=== PATIENT | female | born 1970 | race Caucasian/White ===

== ENCOUNTER 2016-07-31 01:39 | Emergency (ER) | payer BC ==
--- NOTE | 2016-07-31 01:52 | Emergency Department Record ---
History of Present Illness - General Chief Complaint: Abdominal Pain Stated Complaint: ABDOMINAL PAIN Time Seen by Provider: 07/31/16 01:52 Source: Patient Mode of Arrival: Ambulatory Limitations: No limitations - History of Present Illness Initial Comments: The patient is here due to a 3 day hx of sharp RUQ AP. She does have intermittent nausea but no vomiting or diarrhea. The patient has had her GB removed in the past and also has had gastric bypass. Additionally she states she has a hx of ulcers. She denies any black or bloody stools. MD Complaint: Abdominal pain Onset/Timin -: Days(s) Location: R Flank, RUQ Quality: Burning, Sharp, Stabbing Improves With: Nothing Worsens With: Nothing Associated Symptoms: Nausea, Vomiting Treatments Prior to Arrival: Other - Related Data LMP (females 10-50): 3 weeks ago Home Medications Medication Instructions Recorded Confirmed Last Taken Buspirone HCl [Buspirone HCl] 30 mg PO BID 02/15/14 07/31/16 07/30/16 Clonazepam [Clonazepam] 1 mg PO DAILY 02/15/14 07/31/16 07/30/16 Aripiprazole [Abilify] 20 mg PO DAILY 07/31/16 07/31/16 07/30/16 Lisdexamfetamine Dimesylate 40 mg PO DAILY 07/31/16 07/31/16 07/30/16 [Vyvanse] Lisdexamfetamine Dimesylate 70 mg PO DAILY 07/31/16 07/31/16 07/30/16 [Vyvanse] Omeprazole [Prilosec] 20 mg PO DAILY 07/31/16 07/31/16 07/30/16 Venlafaxine HCl [Effexor Xr] 150 mg PO DAILY 07/31/16 07/31/16 07/30/16 Previous Rx's Medication Instructions Recorded Ondansetron [Zofran Odt] 4 mg SL .Q4-6H PRN #12 tab.rapdis 07/31/16 Sucralfate [Carafate] 1 gm PO QID #28 tablet 07/31/16 Allergies Allergy/AdvReac Type Severity Reaction Status Date / Time codeine Allergy HIVES Verified 02/15/14 02:41 Penicillins Allergy HIVES Verified 02/15/14 02:41 Travel Screening - Travel/Exposure Within Last 30 Days Have you traveled within the last 30 days?: No - Travel/Exposure Within Last Year Have you traveled outside the [place] in the last year?: No - Additonal Travel Details Have you been exposed to anyone with a communicable illness?: No - Travel Symptoms Symptom Screening: None Review of Systems Constitutional: Denies: Chills, Fever Eyes: Denies: Eye discharge ENT: Denies: Congestion Respiratory: Denies: Cough, Dyspnea Past Medical History - SOCIAL HISTORY Smoking Status: Current every day smoker Alcohol Use: None Drug Use: None - RESPIRATORY Hx Respiratory Disorders: No - CARDIOVASCULAR Hx Cardio Disorders: No - NEURO Hx Neuro Disorders: No - GI Hx GI Disorders: Yes Hx Ulcer: Yes - Hx Genitourinary Disorders: Yes Hx Kidney Stones: Yes (hx) - ENDOCRINE Hx Endocrine Disorders: No - MUSCULOSKELETAL Hx Musculoskeletal Disorders: Yes Hx Back Injury: Yes (2008 Fall) - PSYCH Hx Psych Problems: Yes Hx Anxiety: Yes Comment:: ADD - HEMATOLOGY/ONCOLOGY Hx Hematology/Oncology Disorders: No Family Medical History Any Significant Family History?: No Hx Cancer: Grandparents Physical Exam - General General Appearance: Alert, Oriented x3, Cooperative, No acute distress - Head Head exam: Atraumatic, Normocephalic, Normal inspection - Eye Eye exam: Normal appearance, PERRL - Neck Neck exam: Normal inspection, Full ROM. negative: Tenderness - Respiratory Respiratory exam: Normal lung sounds bilaterally. negative: Respiratory distress - Cardiovascular Cardiovascular Exam: Regular rate, Normal rhythm, Normal heart sounds - GI/Abdominal GI/Abdominal exam: Soft, Tenderness (There is mild to moderate RUQ and epigastric tenderness but the abdomen is soft.). negative: Guarding, Rebound, Rigid - Extremities Extremities exam: Normal inspection, Full ROM, Normal capillary refill. negative: Tenderness Course Vital Signs 07/31/16 01:41 Temperature 98.6 F Pulse Rate 81 Respiratory 20 Rate Blood Pressure 132/89 Pulse Ox 100 - Reevaluation(s) Reevaluation #1: The patient is doing much better at this time. Her pain is much improved and she is resting comfortably with no discomfort. 07/31/16 03:00 Reevaluation #2: The patient is doing much better at this time. She is resting comfortably with no pain or discomfort or nausea. I did explain that her tests are all WNL and we will refer her to GI for an EGD possibly. 07/31/16 03:18 Medical Decision Making - Data Complexity MDM Data: Labs Ordered and/or Reviewed, X-Ray Ordered and/or Reviewed - Lab Data Result diagrams: 07/31/16 02:02 07/31/16 02:02 - Radiology Data Radiology results: Report reviewed (CT: Normal with no acute changes.) Disposition Disposition: Discharge Clinical Impression: Abdominal pain Qualifiers: Abdominal location: unspecified location Qualified Code(s): R10.9 - Unspecified abdominal pain Instructions: Abdominal Pain (ED) Additional Instructions: Please eat a very bland diet with no fatty or fried foods. Please see a GI doctor in the Specialty clinic as directed. Take the Carafate with Zofran if needed. Please return to the ER for any increased pain, fever, vomiting or bleeding. Prescriptions: Sucralfate [Carafate] 1 gm PO QID #28 tablet Ondansetron [Zofran Odt] 4 mg SL .Q4-6H PRN #12 tab.rapdis PRN Reason: Nausea Referrals: [facility] Special[facility] [Provider Group] Forms: Patient Portal Access Time of Disposition: 03:20
[2016-07-31 02:00] LABS: HCG,QUALITATIVE URINE NEGATIVE (NEGATIVE); URINE APPEARANCE CLEAR; URINE BILIRUBIN NEGATIVE (NEGATIVE); URINE BLOOD NEGATIVE (NEGATIVE); URINE COLOR YELLOW; URINE GLUCOSE (UA) NEGATIVE (NEGATIVE); URINE KETONE NEGATIVE (NEGATIVE); URINE LEUKOCYTE ESTERASE NEGATIVE (NEGATIVE); URINE NITRITE NEGATIVE (NEGATIVE); URINE PROTEIN TRACE (NEGATIVE); URINE UROBILINOGEN 0.2 E.U./dL (0.20 - 1.00)
[2016-07-31] MEDS ORDERED: 0.9 % SODIUM CHLORIDE 1,000 ML BAG IV ONE (02:03)
[2016-07-31] MEDS ORDERED: HYDROMORPHONE HCL 1 MG/ML CPJ IVP ONE ×2 (02:03→02:52)
[2016-07-31] MEDS ORDERED: ONDANSETRON HCL IV 4 MG/2 ML VIAL IV ONE (02:03)
[2016-07-31 02:11] LABS: BASO % 0.3 % (0-6); EOS % 1.7 % (0-6); GRAN % 63.9 % (47-80); HEMATOCRIT 35.4 % (35.0-47.0); MEAN CELL VOLUME 92.2 fl (81-97); MEAN CORPUSCULAR HEMOGLOBIN 28.6 pg (27-33); MEAN CORPUSCULAR HGB CONC 31.1 g/dl (32-36); MEAN PLATELET VOLUME 9.4 fl (7.4-10.4); MONO % 10.1 % (0-9); PLATELET COUNT 342 K/uL (130-400); RED BLOOD COUNT 3.84 M/uL (3.80-5.40); RED CELL DISTRIBUTION WIDTH 16.2 % (11.5-14.5); WHITE BLOOD COUNT W/O DIFF 9.2 K/uL (4.2-12.2)
[2016-07-31 02:21] LABS: ALBUMIN 4.1 gm/dL (3.5-5.0); ALKALINE PHOSPHATASE 55 U/L (38-126); ALT/SGPT 28 U/L (9-52); AST/SGOT 19 U/L (14-36); BILIRUBIN,TOTAL 0.15 mg/dL (0.2-1.3); BLOOD UREA NITROGEN 21 mg/dL (7-17); CREATININE 0.9 mg/dL (0.52-1.04); EST GLOMERULAR FILTRATION RATE > 60 ml/min; GLUCOSE,RANDOM 84 mg/dL (70-110); LIPASE 114 U/L (23-300); TOTAL PROTEIN 6.8 gm/dL (6.3-8.2)
[2016-07-31] MEDS ORDERED: SUCRALFATE 1 G/10 ML UD PO ONE (03:20)
--- NOTE | 2016-08-04 12:58 | CT SCAN REPORT ---
EXAM: CT OF THE ABDOMEN AND PELVIS WITH CONTRAST HISTORY: RIGHT SIDED ABDOMINAL PAIN FOR THREE DAYS. TECHNIQUE: Following oral and intravenous contrast administration, helical CT examination of the abdomen and pelvis was performed including delayed images through the kidneys with 100 ml of Omnipaque 300 utilized. Comparison: CT of the abdomen and pelvis without and with contrast dated . FINDINGS: There is mild dependent atelectasis in each lung base. The visualized lung bases are otherwise clear and there is no pleural or pericardial effusion. No suspicious focal abnormality is noted in the liver, spleen, pancreas, adrenal glands, nor kidneys. There is, however, a 5 mm hypodense lesion in the lateral left mid kidney which is nonspecific, but likely a cyst. This was not visualized on the prior examination. The gallbladder is surgically absent. There is mild prominence of the central biliary tree with the common hepatic duct measuring 6.4 mm. This likely relates to a physiologic response to surgical absence of the gallbladder. No intraabdominal nor retroperitoneal lymphadenopathy is seen. The abdominal aorta and iliac arteries are normal in appearance. The uterus is again noted to be mildly prominent in size, but without focal mass. There is mild prominence of lucency in the central uterus likely relating to the secretory phase of the menstrual cycle. This area measures approximately 16 mm in thickness. There is a dominant follicle in the right ovary measuring 2.5 x 2.2 cm. A dominant follicle in the left ovary measures 1.2 cm in diameter. No intrinsic urinary bladder abnormality is seen. No pelvic adenopathy or free pelvic fluid. No gross bowel dilatation or bowel wall thickening. The appendix is visualized and normal in appearance. No lytic or blastic bone lesion. IMPRESSION: 1. NO CONVINCING CT EVIDENCE OF ACUTE INTRAABDOMINAL NOR INTRAPELVIC PROCESS. 2. DOMINANT FOLLICLES IN EACH OVARY WITH THAT ON THE RIGHT MEASURING UP TO 2.5 CM AND THAT ON THE LEFT MEASURING 1.2 CM. NORMAL APPENDIX. 3. STATUS POST CHOLECYSTECTOMY. NOT MENTIONED ABOVE ARE GASTRIC BYPASS SURGERY CHANGES. 4. THE UTERUS IS AGAIN MILDLY PROMINENT IN SIZE. MILD PROMINENCE OF LUCENCY IN THE REGION OF THE ENDOMETRIUM LIKELY RELATES TO THE SECRETORY PHASE OF THE MENSTRUAL CYCLE. CLINICAL CORRELATION IS RECOMMENDED. JOB NUMBER: [id number] MTDD
== END 2016-07-31 03:41 | disposition home or self-care (01) ==
LOC: ER 01:39
DX: R10.11 Right upper quadrant pain (principal); R11.0 Nausea
CPT/HCPCS: 99284 ×2; 96376; 96374; 96375; 83690; 85025; 80076; 80048; 81003; 81025; 74177; Q9967; J2405; J1170; J7030